=== PATIENT | female | born 1940 | race Caucasian/White ===

== ENCOUNTER 2016-09-21 12:50 | Emergency (ER) | payer MEDICARE, BC ==
--- NOTE | 2016-09-22 08:46 | ER ---
ADMIT: 09/21/2016 RM/LOC: ER [facility] MR#: [id number] [address] [id number] STAR DO [address] [place] [address] Emergency Room Report SEX: F AGE: 76 : 1940 DATE: 09/21/2016 A 76-year-old female was doing house chores, down on her hands and knees. When she tried to stand up, experienced sudden knee pain in the right knee. There is no trauma. She does say she is known to have bad arthritis in that knee and was told at some point in the near future, she is likely going to need knee replacement. See T-sheet for history and physical. Her x-rays reveal degenerative joint disease, otherwise unremarkable. The patient is discharged with knee pain. Instructed to follow up with her orthopedist this coming week. She was given a prescription for Bonner. Ice and elevate today. Use the knee immobilizer, crutches, and heating pad tomorrow. Ranjeet Castillo MD/ valeria JOB #: [id number] CC: Ranjeet Castillo MD, Attending Physician Ailyn Butler MD, Family Physician
== END 2016-09-21 14:50 | disposition home or self-care (01) ==
LOC: ER 12:50
DX: M25.561 Pain in right knee (principal); F32.9 Major depressive disorder, single episode, unspecified; Z90.49 Acquired absence of other specified parts of digestive tract; Z79.899 Other long term (current) drug therapy